=== PATIENT | female | born 1975 | race African-American/Black ===

== ENCOUNTER 2018-07-18 23:55 | Emergency (ER) | payer MEDICAID ==
[~2018-07-18] VITALS: Ht 165.1 cm; Wt 130.0 kg
[~2018-07-18 23:55] MED LIST: HUMALOG; NPH; PRENATAL
[2018-07-19] MEDS ORDERED: KETOROLAC 30MG/ML VIAL IV STA (00:55)
[2018-07-19] MEDS ORDERED: LIDOCAINE HCL/EPINEPHRINE 1%-EPI 1:100,000 20 ML VIAL INFIL ONE (01:00)
[2018-07-19] MEDS ORDERED: TETANUS, DIPHTHERIA, PERTUSSIS VAC/PF 0.5ML (>7YR OLD) IM ONE (01:00)
[2018-07-19 01:29] LABS: CLARITY URINE CLEAR (CLEAR); COLOR URINE YELLOW (YELLOW); KETONES URINE NEGATIVE (NEGATIVE); LEUKOCYTE ESTERASE URINE NEGATIVE (NEGATIVE); NITRITE URINE NEGATIVE (NEGATIVE); OCCULT BLOOD URINE 2+ (NEGATIVE); PROTEIN URINE NEGATIVE (NEGATIVE); SPECIFIC GRAVITY URINE 1.042 (1.005-1.030)
[2018-07-19 02:23] LABS: BASOPHILS % 0.5 % (0.0-2.0); EOSINOPHILS % 0.5 % (0.0-5.0); HEMATOCRIT. 43.6 % (36.0-48.0); HEMOGLOBIN. 14.6 g/dL (12.0-16.0); MEAN CORPUSCULAR HEMOGLOBIN 29.7 pg (28.0-32.0); MEAN CORPUSCULAR VOLUME 88.8 fL (81.0-99.0); MEAN PLATELET VOLUME 8.6 fl (7.4-10.4); MONOCYTES % 6.3 % (2.0-8.0); NEUTROPHILS % 68.7 % (40.0-76.0); PLATELET 322 x1000/uL (130-400); RED BLOOD CELL COUNT 4.91 mill/uL (4.2-5.4); RED CELL DISTRIBUTION WIDTH 12.9 % (11.6-14.6)
[2018-07-19 02:26] LABS: INR 0.9; PROTHROMBIN TIME 9.5 sec (9.1-11.1)
[2018-07-19 02:27] LABS: HCG SCREEN NEGATIVE
[2018-07-19 02:29] LABS: CHLORIDE 100 mEq/L (98-107)
[2018-07-19] MEDS ORDERED: IOHEXOL-300 100 ML BOTTLE ONE (06:12)
[2018-07-19 06:45] VITALS: BP 121/77
== END 2018-07-19 07:12 | disposition home or self-care (01) ==
LOC: ER 23:55
DX: S22.41XA Multiple fractures of ribs, right side, initial encounter for closed fracture (principal); S01.81XA Laceration without foreign body of other part of head, initial encounter; M79.604 Pain in right leg; R03.0 Elevated blood-pressure reading, without diagnosis of hypertension; V49.50XA Passenger injured in collision with unspecified motor vehicles in traffic accident, initial encounter; Y93.89 Activity, other specified; Y92.410 Unspecified street and highway as the place of occurrence of the external cause; Z23 Encounter for immunization; F17.210 Nicotine dependence, cigarettes, uncomplicated
CPT/HCPCS: 12014; 36415; 70450; 70486; 71045; 71260; 72170; 73590; 74177; 80053; 81003; 81025; 83690; 84703; 85025; 85610; 85730; 86850; 86900; 86901; 90471; 90715; 96372; 99285; J1885; J3490; Q9967

== ENCOUNTER 2018-07-21 14:29 | Emergency (ER) | payer MEDICAID ==
[~2018-07-21] VITALS: Ht 167.6 cm; Wt 100.0 kg
[2018-07-21] MEDS ORDERED: ONDANSETRON HCL 4MG TABLET PO ONE (15:45)
[2018-07-21] MEDS ORDERED: MORPHINE SULFATE 10 MG/ML CPJ IM ONE (15:45)
[2018-07-21] MEDS ORDERED: HYDROCODONE/ACETAMINOPHEN 5/325MG TABLET PO STA (15:51)
[2018-07-21 17:18] LABS: BASOPHILS % 1.2 % (0.0-2.0); EOSINOPHILS % 0.6 % (0.0-5.0); HEMATOCRIT. 41.3 % (36.0-48.0); HEMOGLOBIN. 13.7 g/dL (12.0-16.0); MEAN CORPUSCULAR HEMOGLOBIN 29.5 pg (28.0-32.0); MEAN CORPUSCULAR VOLUME 89.1 fL (81.0-99.0); MEAN PLATELET VOLUME 8.4 fl (7.4-10.4); MONOCYTES % 7.5 % (2.0-8.0); NEUTROPHILS % 66.7 % (40.0-76.0); PLATELET 287 x1000/uL (130-400); RED BLOOD CELL COUNT 4.64 mill/uL (4.2-5.4); RED CELL DISTRIBUTION WIDTH 12.9 % (11.6-14.6)
[2018-07-21 17:23] LABS: CHLORIDE 101 mEq/L (98-107)
[2018-07-21 17:45] LABS: HCG SCREEN NEGATIVE
[2018-07-21] MEDS ORDERED: HYDROCODONE/ACETAMINOPHEN 5/325MG TABLET PO ONE (20:30)
[2018-07-22] MEDS ORDERED: HYDROCODONE/ACETAMINOPHEN 5/325MG TABLET PO ONE ×2 (09:15)
[2018-07-22 12:57] VITALS: BP 128/76
== END 2018-07-22 13:06 | disposition home or self-care (01) ==
LOC: ER 15:11
DX: R07.89 Other chest pain (principal); E11.65 Type 2 diabetes mellitus with hyperglycemia; Z59.0 Homelessness; Z87.828 Personal history of other (healed) physical injury and trauma; Z79.84 Long term (current) use of oral hypoglycemic drugs
CPT/HCPCS: 36415; 71045; 80053; 83880; 84484; 84703; 85025; 93005; 99285; Q0162

== ENCOUNTER 2018-08-02 16:55 | Emergency (ER) | payer SELFPAY ==
[~2018-08-02] VITALS: Ht 162.6 cm; Wt 103.0 kg
[2018-08-02] MEDS ORDERED: BACITRACIN ZINC OINT UDPKT TOP ONE (21:00)
[2018-08-02 21:11] VITALS: BP 124/66
== END 2018-08-02 21:13 | disposition home or self-care (01) ==
LOC: ER 16:55
DX: Z48.02 Encounter for removal of sutures (principal); L03.811 Cellulitis of head [any part, except face]
CPT/HCPCS: 99283